=== PATIENT | female | born 1960 | race Caucasian/White ===

== ENCOUNTER 2023-02-05 09:16 | Emergency (ER) | payer OTHER ==
[2023-02-05 09:31] VITALS: RESP 18; BMI 33.4
[2023-02-05] MEDS ORDERED: MECLIZINE HCL 25 MG TABLET (FP) PO ONE ×2 (10:10→11:02)
[2023-02-05] MEDS ORDERED: ONDANSETRON *ODT* 4 MG TABLET ONE (10:13)
[2023-02-05] MEDS ORDERED: MECLIZINE HCL 25 MG TABLET (FP) ONE ×2 (10:13→11:09)
[2023-02-05] MEDS ORDERED: ONDANSETRON *ODT* 4 MG TABLET SL ONE (10:14)
[2023-02-05] MEDS ORDERED: ACETAMINOPHEN 1000 MG/100 ML BAG IVPB ONE (12:00)
[2023-02-05] MEDS ORDERED: LACTATED RINGERS SOLUTION 1000 ML INFUS.BAG IV ONE (12:00)
[2023-02-05] MEDS ORDERED: ACETAMINOPHEN INJECTION 100 ML IVPB ONE (12:06)
[2023-02-05 12:51] LABS: HEMATOCRIT 44.6 % (32.4-45.2); HEMOGLOBIN 15.1 G/dL (10.7-15.3); MCH 31.9 pg (25.7-33.7); MCHC 33.8 g/dl (32.0-36.0); MEAN CELL VOLUME 94.5 fl (80-96); PLATELET COUNT 364.5 10^3/uL (134-434); RBC 4.72 10^6/uL (3.60-5.2); RDW 14.5 % (11.6-15.6); WHITE BLOOD COUNT 5.9 10^3/uL (4.0-10.8)
[2023-02-05 12:54] LABS: PLATELET ESTIMATE ADEQUATE
[2023-02-05 13:03] LABS: ALBUMIN 4.1 g/dl (3.4-5.0); BLOOD UREA NITROGEN 9.8 mg/dl (7-18); CALCIUM 9.6 mg/dl (8.5-10.1); CREATININE 0.7 mg/dl (0.6-1.3); POTASSIUM 4.4 mmol/L (3.5-5.1); SGOT/AST 16.4 U/L (15-37); SGPT/ALT 16.7 U/L (7-52); TOT PROT 6.6 g/dl (6.4-8.2)
[2023-02-05 13:17] VITALS: BP 142/66; PULSE 55; TEMP 97.6
== END 2023-02-05 14:32 | disposition home or self-care (01) ==
LOC: FER 09:16
PROC: 3E033NZ Introduction of Analgesics, Hypnotics, Sedatives into Peripheral Vein, Percutaneous Approach (ICD-10-PCS; principal; 2023-02-05)
DX: R42 Dizziness and giddiness (principal); R11.0 Nausea
CPT/HCPCS: 36415; 70450-TC; 80053; 85025; 99284-25; Q0162

== ENCOUNTER 2023-08-09 19:40 | Emergency (ER) | payer OTHER ==
[2023-08-09 19:55] VITALS: BP 139/84; RESP 17; TEMP 98.9; BMI 32.3
[2023-08-09 20:21] LABS: HEMATOCRIT 42.4 % (32.4-45.2); MCH 30.5 pg (25.7-33.7); MEAN CELL VOLUME 92.3 fl (80-96); MEAN PLT VOLUME 8.4 fl (7.5-11.1); PLATELET COUNT 356.5 10^3/uL (134-434); RBC 4.59 10^6/uL (3.60-5.2); RDW 14.7 % (11.6-15.6); WHITE BLOOD COUNT 7.3 10^3/uL (4.0-10.8)
[2023-08-09 20:48] LABS: BILIRUBIN,TOTAL 0.9 mg/dl (0.2-1); CALCIUM 9.3 mg/dl (8.5-10.1); CREATININE 0.9 mg/dl (0.6-1.3); MAGNESIUM 1.9 mg/dL (1.8-2.4); PHOSPHOROUS 3.5 (2.5-4.9); POTASSIUM 4.6 mmol/L (3.5-5.1); TOT PROT 6.3 g/dl (6.4-8.2)
[2023-08-09 20:50] VITALS: PULSE 71
[2023-08-09] MEDS ORDERED: predniSONE 20 MG TABLET (UD) PO ONE (21:14)
[2023-08-09] MEDS ORDERED: predniSONE 20 MG TABLET (UD) ONE (21:15)
[2023-08-09 21:22] LABS: N-TERMINAL BNP 90.7 pg/ml (5-125)
[2023-08-09 21:31] LABS: THROAT:GRP A STREP NOT DETECTED (NOTDETECTED)
== END 2023-08-09 23:52 | disposition home or self-care (01) ==
LOC: FER 19:40
DX: M79.89 Other specified soft tissue disorders (principal); R09.89 Other specified symptoms and signs involving the circulatory and respiratory systems; B34.9 Viral infection, unspecified; Z20.822 Contact with and (suspected) exposure to COVID-19
CPT/HCPCS: 0241U-QW; 36415; 71045-TC-FY; 80053; 83735; 83880; 84100; 85027; 87651; 93005; 93970-TC; 99285-25

== ENCOUNTER 2024-03-25 05:05 | Day surgery (SDC) | payer OTHER ==
[2024-03-23 13:19] VITALS: BMI 35.5
[2024-03-25 11:48] VITALS: TEMP 98
[2024-03-25 11:59] VITALS: BP 106/57; PULSE 60; RESP 16
== END 2024-03-25 11:44 | disposition home or self-care (01) ==
LOC: JASU-ENDO 05:05
PROVIDERS: ATTEND Internal Medicine Gastroenterology
PROC: 0DJD8ZZ Inspection of Lower Intestinal Tract, Via Natural or Artificial Opening Endoscopic (ICD-10-PCS; principal; 2024-03-25 10:30)
DX: Z12.11 Encounter for screening for malignant neoplasm of colon (principal); K57.30 Diverticulosis of large intestine without perforation or abscess without bleeding; Z86.010 Personal history of colon polyps